=== PATIENT | male | born 1990 | race African-American/Black ===

== ENCOUNTER 2023-11-16 20:16 | Emergency (ER) | payer MEDICAID ==
[~2023-11-16] VITALS: Ht 185.4 cm; Wt 74.8 kg
[2023-11-16] MEDS ORDERED: LIDOCAINE VISCOUS 2% UD 15 ML UDC ONE (21:16)
[2023-11-16] MEDS ORDERED: MAG HYDROX/AL HYDROX/SIMETH 30 ML UDC ONE (21:16)
[2023-11-16] MEDS ORDERED: ONDANSETRON HCL/PF 4 MG/2 ML VIAL ONE ×2 (21:16→22:55)
[2023-11-16] MEDS ORDERED: MAG HYDROX/AL HYDROX/SIMETH 30 ML UDC PO ONE (21:30)
[2023-11-16] MEDS ORDERED: IV NS 0.9% 1,000 ML BAG IV ONE (21:30)
[2023-11-16] MEDS ORDERED: LIDOCAINE VISCOUS 2% UD 15 ML UDC MM ONE (21:30)
[2023-11-16] MEDS ORDERED: ONDANSETRON HCL/PF 4 MG/2 ML VIAL IVP ONE (21:30)
[2023-11-16 21:36] LABS: BASOPHILS % (AUTO) 0.2 % (0.0-2.0); HEMATOCRIT 41 % (39-51); HEMOGLOBIN 13.4 g/dL (13.5-17.5); LYMPHOCYTES # (AUTO) 1.4 K/uL (0.8-4.8); LYMPHOCYTES % (AUTO) 12.2 % (20.0-44.0); MEAN CORPUSCULAR HEMOGLOBIN 29 PG (26.0-33.0); MEAN CORPUSCULAR HGB CONC 33 g/dl (31.0-36.0); MEAN CORPUSCULAR VOLUME 89 fL (80-96); MONOCYTES # (AUTO) 0.7 K/uL (0.1-1.30); MONOCYTES % (AUTO) 6.6 % (2.0-12.0); PLATELET COUNT (AUTO) 226 K/uL (150-450); RED BLOOD CELL COUNT(AUTO) 4.63 MIL/uL (4.5-6.0); RED CELL DISTRIBUTION WIDTH 14.3 % (11.5-15.0); WHITE BLOOD COUNT (AUTO) 11.1 K/uL (4.3-11.0)
[2023-11-16 21:54] LABS: INR 1.02 (0.91-1.10); PARTIAL THROMBOPLASTIN TIME 26.6 SEC (24.3-34.3); PROTHROMBIN TIME 10.8 SECS (9.2-11.1)
[2023-11-16 22:08] LABS: ALBUMIN 4.4 g/dL (3.4-5.0); BILIRUBIN,DIRECT 0.2 mg/dL (0.0-0.2); BILIRUBIN,TOTAL 0.7 mg/dL (0.2-1.0); CALCIUM, SERUM 9.5 mg/dL (8.5-10.1); CREATININE 1.3 mg/dL (0.6-1.3); POTASSIUM 3.4 mmol/L (3.5-5.1); TOTAL PROTEIN, SERUM 8.2 g/dL (6.4-8.2)
[2023-11-16] MEDS ORDERED: ONDANSETRON HCL/PF 4 MG/2 ML VIAL IV ONE (23:00)
[2023-11-16] MEDS ORDERED: ONDA4TAB5 PO (23:44)
[2023-11-16 23:58] VITALS: BP 138/74; TEMP 98.1; O2SAT 100
== END 2023-11-16 23:59 | disposition home or self-care (01) ==
LOC: ER 20:21
DX: K52.9 Noninfective gastroenteritis and colitis, unspecified (principal); Z79.899 Other long term (current) drug therapy; Z91.018 Allergy to other foods
CPT/HCPCS: 99285; 74176; 96374; 96361; 93005; 96376; 85025; 80048; 83690; 80076; 36415; 85730; J2405 ×2; J7030

== ENCOUNTER 2024-09-05 21:24 | Emergency (ER) | payer MEDICAID, OTHER ==
[~2024-09-05] VITALS: Ht 185.4 cm; Wt 72.6 kg
[~2024-09-05 21:24] MED LIST: ONDA4TAB5 PO
[2024-09-05] MEDS ORDERED: HYDROCODONE/APAP 5/325MG TABLET ONE (23:17)
[2024-09-05] MEDS ORDERED: LIDOCAINE 1%-EPI 1:100,000 20 ML VIAL ONE (23:17)
[2024-09-05] MEDS: HYDROCODONE/APAP 5/325MG TABLET PO ONE (23:22)
[2024-09-05] MEDS: LIDOCAINE 1%-EPI 1:100,000 20 ML VIAL TP ONE (23:30)
[2024-09-06] MEDS ORDERED: CLIN300C12 PO (00:57)
[2024-09-06] MEDS ORDERED: TRAM50TA2 PO (00:57)
[2024-09-06] MEDS ORDERED: NAPR-1009 PO (00:57)
[2024-09-06 01:08] VITALS: BP 137/74; TEMP 99.1; O2SAT 98
== END 2024-09-06 01:08 | disposition home or self-care (01) ==
LOC: ER 21:26
DX: S61.412A Laceration without foreign body of left hand, initial encounter (principal); Z91.018 Allergy to other foods; Y04.0XXA Assault by unarmed brawl or fight, initial encounter; Y93.89 Activity, other specified; Y92.89 Other specified places as the place of occurrence of the external cause; Y99.8 Other external cause status
CPT/HCPCS: 12002; 73130; 99283; A6403; J3490